=== PATIENT | male | born 1960 | race Two or more races ===

== ENCOUNTER → 2017-08-28 | Outpatient (CLI) | payer BC ==
[2017-08-28 12:51] LABS: Basophils # (auto) 0 uL; Basophils % (auto) 0.5 % (0.0-2.0); Eosinophils # (auto) 0.3 uL; Eosinophils % (auto) 5.5 % (0.0-7.0); Hematocrit 48.8 % (41.0-53.0); Hemoglobin 16.5 g/dL (13.5-17.5); Lymphocytes # (auto) 1.2 uL; Lymphocytes % (auto) 24.1 % (10.0-50.0); Mean Corpuscular Hemoglobin 30.2 pg (28.0-32.0); Mean Corpuscular Hgb Conc. 33.8 g/dL (32.0-36.0); Mean Corpuscular Volume 89.2 fL (80.0-100.0); Mean Platelet Volume 9.6 fL (6.9-10.8); Monocytes # (auto) 0.4 uL; Monocytes % (auto) 8.5 % (0.0-12.0); Neutrophils # (auto) 3.1 uL; Neutrophils % (auto) 61.4 % (37.0-80.0); Nucleated Red Blood Cells % 0.7 %; Platelet Count (auto) 164 10^3/uL (140-450); Red Cell Distribution Width 14.4 % (11.8-14.3)
[2017-08-28 13:09] LABS: Albumin 4.2 g/dL (3.4-5.0); BUN/Creatinine Ratio 20.5; Bilirubin, Direct 0.2 mg/dL (0-0.2); Bilirubin, Total 0.6 mg/dL (0.2-1.0); Calcium 9.6 mg/dL (8.5-10.1); Potassium 4.4 mmol/L (3.5-5.1); Total Protein 8.1 g/dL (6.4-8.2)
== END | disposition home or self-care (01) ==
LOC: Rad HDHVI 09:40
PROVIDERS: ATTEND Internal Medicine Cardiovascular Disease
DX: I10 Essential (primary) hypertension (principal); E11.9 Type 2 diabetes mellitus without complications; E78.00 Pure hypercholesterolemia, unspecified; K74.1 Hepatic sclerosis; E03.9 Hypothyroidism, unspecified; D64.9 Anemia, unspecified; E55.9 Vitamin D deficiency, unspecified; R97.20 Elevated prostate specific antigen [PSA]; R53.81 Other malaise
CPT/HCPCS: 36415; 71020; 80048; 80061; 80076; 82306; 83036; 84403; 84443; 85025

== ENCOUNTER → 2020-01-13 | Outpatient (CLI) | payer BC ==
[2020-01-13 15:58] LABS: Urine Blood 3+ /uL (Negative); Urine Specific Gravity 1.043 (1.001-1.035)
[2020-01-13 16:02] LABS: Albumin 4.1 g/dL (3.4-5.0); Calcium 9.9 mg/dL (8.5-10.1); Potassium 4.8 mmol/L (3.5-5.1)
[2020-01-13 16:05] LABS: Basophils # (auto) 0 10 ^3/uL (0-0.2); Basophils % (auto) 0.4 % (0.0-2.0); Eosinophils # (auto) 0.1 10 ^3/uL (0-0.8); Eosinophils % (auto) 1.7 % (0.0-7.0); Hematocrit 48.9 % (41.0-53.0); Hemoglobin 16.6 g/dL (13.5-17.5); Lymphocytes # (auto) 1.2 10 ^3/uL (0.4-5.4); Lymphocytes % (auto) 16.5 % (10.0-50.0); Mean Corpuscular Hgb Conc. 33.9 g/dL (32.0-36.0); Mean Corpuscular Volume 91.4 fL (80.0-100.0); Monocytes # (auto) 0.8 10 ^3/uL (0-1.3); Monocytes % (auto) 10.6 % (0.0-12.0); Neutrophils # (auto) 5.3 10 ^3/uL (1.6-8.6); Neutrophils % (auto) 70.8 % (37.0-80.0); Nucleated Red Blood Cells % 0.1 %; Platelet Count (auto) 147 10^3/uL (140-450); Red Blood Cells 5.35 10^6/uL (4.5-5.90); Red Cell Distribution Width 14.2 % (11.8-14.3); White Blood Cell 7.4 10^3/uL (4.4-10.8)
[2020-01-13 16:07] LABS: Bilirubin, Total 0.6 mg/dL (0.2-1.0); Total Protein 7.9 g/dL (6.4-8.2)
[2020-01-13 16:10] LABS: Free T4 (Free Thyroxine) 1.36 ng/dL (0.89-1.76)
== END | disposition home or self-care (01) ==
LOC: LAB 12:58
PROVIDERS: ATTEND Internal Medicine Cardiovascular Disease
DX: Z00.00 Encounter for general adult medical examination without abnormal findings (principal); M12.88 Other specific arthropathies, not elsewhere classified, other specified site; M46.06 Spinal enthesopathy, lumbar region; K42.9 Umbilical hernia without obstruction or gangrene; I70.8 Atherosclerosis of other arteries; E03.9 Hypothyroidism, unspecified; K90.9 Intestinal malabsorption, unspecified; C61 Malignant neoplasm of prostate; E29.1 Testicular hypofunction; N39.0 Urinary tract infection, site not specified; D51.9 Vitamin B12 deficiency anemia, unspecified; Z79.899 Other long term (current) drug therapy
CPT/HCPCS: 36415; 74176; 80053; 80061; 81003; 82306; 82607; 83036; 84153; 84403; 84439; 84443; 85025

== ENCOUNTER → 2020-02-24 | Outpatient (CLI) | payer BC ==
[2020-02-24 11:59] LABS: Calcium 9.2 mg/dL (8.5-10.1); Potassium 4.5 mmol/L (3.5-5.1)
[2020-02-24 12:01] LABS: BUN/Creatinine Ratio 22.5
== END | disposition home or self-care (01) ==
LOC: LAB 09:21
PROVIDERS: ATTEND Internal Medicine
DX: E27.8 Other specified disorders of adrenal gland (principal)
CPT/HCPCS: 36415; 80048

== ENCOUNTER → 2020-02-26 | Outpatient (CLI) | payer BC ==
[~2020-02-26] MED LIST: IOHEXOL 300 MG/ML 100ML BOTTLE IJ ONE
== END | disposition home or self-care (01) ==
LOC: CT 09:35
PROVIDERS: ATTEND Internal Medicine
DX: D35.01 Benign neoplasm of right adrenal gland (principal)
CPT/HCPCS: 74177; Q9967

== ENCOUNTER → 2020-09-28 | Outpatient (CLI) | payer BC ==
[2020-09-28 12:11] LABS: Basophils # (auto) 0 10 ^3/uL (0-0.2); Basophils % (auto) 0.5 % (0.0-2.0); Eosinophils # (auto) 0.2 10 ^3/uL (0-0.8); Hematocrit 50.5 % (41.0-53.0); Lymphocytes # (auto) 0.9 10 ^3/uL (0.4-5.4); Lymphocytes % (auto) 16.7 % (10.0-50.0); Mean Corpuscular Hemoglobin 30.7 pg (28.0-32.0); Mean Corpuscular Hgb Conc. 33.6 g/dL (32.0-36.0); Mean Corpuscular Volume 91.4 fL (80.0-100.0); Monocytes # (auto) 0.5 10 ^3/uL (0-1.3); Monocytes % (auto) 9.2 % (0.0-12.0); Neutrophils % (auto) 70.6 % (37.0-80.0); Nucleated Red Blood Cells % 0.5 %; Platelet Count (auto) 131 10^3/uL (140-450); Red Blood Cells 5.52 10^6/uL (4.5-5.90); Red Cell Distribution Width 14.6 % (11.8-14.3); White Blood Cell 5.6 10^3/uL (4.4-10.8)
[2020-09-28 12:37] LABS: Potassium 4.1 mmol/L (3.5-5.1)
[2020-09-28 12:53] LABS: BUN/Creatinine Ratio 19.6; Bilirubin, Total 0.8 mg/dL (0.2-1.0); CRP High Sensitivity 0.05 mg/dL (< 0.3); Calcium 9.8 mg/dL (8.5-10.1); Total Protein 7.5 g/dL (6.4-8.2)
[2020-09-28 14:49] LABS: Free T3 2.76 pg/mL (2.3-4.2); Free T4 (Free Thyroxine) 1.45 ng/dL (0.89-1.76); Prostate Specific Antigen 3.37 ng/mL (0.0-4.0)
== END | disposition home or self-care (01) ==
LOC: LAB 10:35
PROVIDERS: ATTEND Internal Medicine Cardiovascular Disease
DX: C61 Malignant neoplasm of prostate (principal); D51.3 Other dietary vitamin B12 deficiency anemia; I10 Essential (primary) hypertension; E11.9 Type 2 diabetes mellitus without complications; E55.9 Vitamin D deficiency, unspecified; D64.9 Anemia, unspecified; R00.2 Palpitations; R53.1 Weakness; R30.0 Dysuria; R89.1 Abnormal level of hormones in specimens from other organs, systems and tissues; E27.40 Unspecified adrenocortical insufficiency
CPT/HCPCS: 36415; 80053; 80061; 82533; 82607; 82626; 83036; 84153; 84403; 84439; 84443; 84481; 85025; 86141

== ENCOUNTER → 2020-10-25 | Outpatient (CLI) | payer OTHER | END | disposition home or self-care (01) | LOC: LAB 16:46 | PROVIDERS: ATTEND Nurse Practitioner Family | DX: U07.1 COVID-19 (principal) | CPT/HCPCS: 36415; 87426; C9803; U0003 ==

== ENCOUNTER 2025-04-01 07:52 | Outpatient (CLI) | payer BC ==
[2025-04-01 08:06] LABS: Basophils # (auto) 0 10 ^3/uL (0-0.2); Basophils % (auto) 0.5 % (0.0-2.0); Eosinophils # (auto) 0.2 10 ^3/uL (0-0.8); Eosinophils % (auto) 5.2 % (0.0-7.0); Hematocrit 48.9 % (41.0-53.0); Hemoglobin 16.8 g/dL (13.5-17.5); Lymphocytes % (auto) 21.4 % (10.0-50.0); Mean Corpuscular Hemoglobin 30.5 pg (28.0-32.0); Mean Corpuscular Hgb Conc. 34.4 g/dL (32.0-36.0); Mean Corpuscular Volume 88.5 fL (80.0-100.0); Monocytes # (auto) 0.4 10 ^3/uL (0-1.3); Monocytes % (auto) 9.5 % (0.0-12.0); Neutrophils % (auto) 63.4 % (37.0-80.0); Nucleated Red Blood Cells % 0.1 %; Platelet Count (auto) 117 10^3/uL (140-450); Red Blood Cells 5.53 10^6/uL (4.5-5.90); Red Cell Distribution Width 14.3 % (11.8-14.3); White Blood Cell 4.7 10^3/uL (4.4-10.8)
[2025-04-01 08:42] LABS: Alanine Aminotransferase 31 U/L (7-40); Alkaline Phosphatase 56 U/L (46-116); Anion Gap 7 (5-15); Aspartate Aminotransferase 18 U/L (13-40); BUN/Creatinine Ratio 18.2 (10.0-20.0); Blood Urea Nitrogen 16 mg/dL (9-23); Carbon Dioxide 26 mmol/L (20-31); Cholesterol 141 mg/dL (< 200); LDL Cholesterol 77 mg/dL (< 100); Potassium 4.6 mmol/L (3.5-5.1); Sodium 142 mmol/L (136-145); Total Protein 7.3 g/dL (5.7-8.2)
[2025-04-01 08:43] LABS: Bilirubin, Total 0.6 mg/dL (0.2-1.0)
[2025-04-01 08:44] LABS: Albumin 4.9 g/dL (3.2-4.8); Calcium 10.5 mg/dL (8.7-10.4); Chloride 109 mmol/L (98-107); Glucose 175 mg/dL (74-106); HDL Cholesterol 34 mg/dL (40-59); Triglycerides 215 mg/dL (< 150)
[2025-04-01 08:48] LABS: Prostate Specific Antigen 3.61 ng/mL (0.0-4.0)
[2025-04-01 08:52] LABS: Carcinoembryonic Antigen 1.15 ng/mL (<=5.0)
[2025-04-01 11:09] LABS: Urine Blood Negative /uL (Negative); Urine Budding Yeast OCCASIONAL /hpf (None Seen); Urine Clarity Clear (Clear); Urine Color Light-Yellow (Yellow); Urine Protein, UAD Negative (Negative); Urine Specific Gravity 1.035 (1.001-1.035); Urine Squamous Epithelial Cell FEW /hpf (<5); Urine Urobilinogen Normal (Negative); Urine WBC 3 /HPF (0-3); Urine pH 5.5 (5.0-9.0)
== END 2025-04-01 17:00 | disposition home or self-care (01) ==
LOC: LAB 07:52
PROVIDERS: ATTEND Internal Medicine
DX: E11.9 Type 2 diabetes mellitus without complications (principal); E78.5 Hyperlipidemia, unspecified; R29.898 Other symptoms and signs involving the musculoskeletal system; Z00.00 Encounter for general adult medical examination without abnormal findings
CPT/HCPCS: 36415; 80053; 80061; 81001; 82306; 82378; 83036; 84153; 84403; 84443; 85025